=== PATIENT | male | born 1990 | race Hispanic/Latino ===

== ENCOUNTER 2018-03-21 17:20 | Emergency (ER) | payer OTHER ==
[~2018-03-21] VITALS: Ht 175.3 cm; Wt 108.2 kg
[~2018-03-21 17:20] MED LIST: AMOXICILLIN500 MG OR; BACTRIM DS1 TAB OR; CEPHALEXIN500 MG PO; FAMVIR500 MG PO; SILVADENE1 % EX; ULTRAM50 M1 OR; ULTRAM50 M1 PO
[2018-03-21] MEDS ORDERED: FLEXERIL PO (18:25)
[2018-03-21] MEDS ORDERED: TORADOL PO (18:25)
[2018-03-21 18:32] VITALS: BP 139/74
== END 2018-03-21 18:32 | disposition home or self-care (01) | DRG 605 ==
LOC: ED 17:20
DX: S20.212A Contusion of left front wall of thorax, initial encounter (principal); S40.012A Contusion of left shoulder, initial encounter; V43.52XA Car driver injured in collision with other type car in traffic accident, initial encounter

== ENCOUNTER 2019-02-07 22:02 | Emergency (ER) | payer SELFPAY ==
[~2019-02-07] VITALS: Ht 172.7 cm; Wt 109.1 kg
[~2019-02-07 22:02] MED LIST changes: +FLEXERIL PO; +TORADOL PO
[2019-02-07 23:00] VITALS: BP 144/92
== END 2019-02-07 23:10 | disposition home or self-care (01) | DRG 605 ==
LOC: ED 22:02
PROC: 0HQGXZZ Repair Left Hand Skin, External Approach (ICD-10-PCS; principal; 2019-02-07)
DX: S61.012A Laceration without foreign body of left thumb without damage to nail, initial encounter (principal); W45.8XXA Other foreign body or object entering through skin, initial encounter; Y93.89 Activity, other specified; Y92.89 Other specified places as the place of occurrence of the external cause; Y99.0 Civilian activity done for income or pay

== ENCOUNTER 2020-05-07 21:18 | Emergency (ER) | payer OTHER ==
[2020-05-07 23:00] LABS: URINE BILIRUBIN - DIPSTICK NEGATIVE (NEGATIVE); URINE BLOOD DIPSTICK NEGATIVE (NEGATIVE); URINE COLOR YELLOW; URINE GLUCOSE - DIPSTICK >=1000 mg/dL (NEGATIVE); URINE KETONE 40 mg/dL (NEGATIVE); URINE LEUK ESTERASE NEGATIVE (NEGATIVE); URINE NITRITE - DIPSTICK NEGATIVE (Negative); URINE PROTEIN - DIPSTICK NEGATIVE (NEG-TRACE); URINE SPECIFIC GRAVITY 1.015; URINE UROBILINOGEN - DIPSTICK 0.2 E.U./dL (0.2)
[2020-05-07 23:01] LABS: HEMATOCRIT 44.4 % (39.0-50.0); HEMOGLOBIN 16.5 g/dl (14.0-18.0); IMMATURE GRANULOCYTES 0.1 % (0.0-5.0); MEAN CELL VOLUME 83.1 fL CALC (80.0-100.0); MEAN CORPUSCULAR HGB 30.9 pG CALC (26.0-32.0); MEAN CORPUSCULAR HGB CONC 37.2 g/dL CAL (32.0-36.0); NEUT# 3.25 thou/uL (1.82-7.42); RED BLOOD COUNT 5.34 mill/uL (4.70-6.10); RED CELL DISTRI WIDTH 11.5 % (11.5-15.5)
[2020-05-07 23:13] LABS: ALBUMIN 4.4 g/dL (3.2-5.0); ALKALINE PHOSPHATASE 188 u/l (38-126); ANION GAP 16 (6-22 (CALC)); BILIRUBIN, TOTAL 0.8 mg/dL (0.0-1.4); BUN 16 mg/dL (9-20); BUN/CREATININE RATIO 17 (12-20 (CALC)); CARBON DIOXIDE 23 mmol/l (22-30); CHLORIDE 94 mmol/l (95-108); GFR > 60 ML/MIN (>=60 (CALC)); GFR FOR AFR.AMER. > 60 ML/MIN (>=60 (CALC)); LIPASE 161 u/l (23-300); POTASSIUM 3.9 mmol/l (3.5-5.1); SGOT/AST 27 u/l (17-59); SODIUM 130 mmol/l (137-146); TOTAL PROTEIN 7.3 g/dL (6.3-8.2)
[2020-05-07 23:41] VITALS: BP 115/64
[2020-05-07] MEDS ORDERED: METFORMIN500 M2 PO (23:45)
== END 2020-05-08 00:01 | disposition home or self-care (01) | DRG 639 ==
LOC: ED 21:18
DX: E11.9 Type 2 diabetes mellitus without complications (principal); F17.200 Nicotine dependence, unspecified, uncomplicated